=== PATIENT | female | born 1970 | race Caucasian/White ===

== ENCOUNTER 2018-01-05 13:02 | Emergency (ER) | payer MEDICAID ==
[~2018-01-05] VITALS: Ht 170.2 cm; Wt 85.7 kg
--- NOTE | 2018-01-05 13:02 | NUR ---
Pt placed in bed 3 by ALS
[2018-01-05 13:05] VITALS: BP_SYST 196
--- NOTE | 2018-01-05 13:10 | NUR ---
ER at bedside examining patient.
[2018-01-05] MEDS ORDERED: ASPIRIN 81 MG TAB.CHEW PO ONE (13:15)
[2018-01-05] MEDS ORDERED: NITROGLYCERIN 1 INCH (GM) OINT. TP ONE (13:15)
--- NOTE | 2018-01-05 13:20 | NUR ---
Pt complains of left upper chest pain that radiates to left arm, pt states feels "like pressure to chest. Pt complains of SOB with n/v. Pt is able to speak in full sentences and O2 sat is 96% on room air. Pt states pain started this morning when waking up and got worse at work. 911 was called and pt was brought here. No other injuries/complaints per pt or noted. Addendum: 01/05/18 at 1328 by KIM Pt states pain is not constant, and has extra stress in life at this time.
--- NOTE | 2018-01-05 13:23 | NUR ---
Pt given aspirin and nitro paste, tolerated well
[2018-01-05 13:37] LABS: BASOPHILS # (AUTO) 0.1 K/uL (0.0-0.2); BASOPHILS % (AUTO) 1.5 % (0.0-2.0); EOSINOPHILS % (AUTO) 0.2 % (0.0-4.0); HEMOGLOBIN 11.2 g/dL (12.0-16.0); LYMPHOCYTES # (AUTO) 0.6 K/uL (1.0-5.5); LYMPHOCYTES % (AUTO) 9.4 % (20.5-51.5); MEAN CORPUSCULAR HEMOGLOBIN 28 pg (27-31); MEAN CORPUSCULAR HGB CONC 34 % (32-36); MEAN CORPUSCULAR VOLUME 83 fL (79.0-98.0); MONOCYTES # (AUTO) 0.6 K/uL (0.0-1.0); MONOCYTES % (AUTO) 8.4 % (1.7-9.3); NEUTROPHILS # (AUTO) 5.6 K/uL (1.8-7.7); NEUTROPHILS % (AUTO) 80.5 % (40.0-70.0); PLATELET COUNT (AUTO) 217 K/uL (130-430); RED BLOOD CELL COUNT(AUTO) 3.98 MIL/uL (4.2-6.2); RED CELL DISTRIBUTION WIDTH 18.5 % (9.0-15.0); WHITE BLOOD COUNT (AUTO) 6.9 K/uL (4.8-10.8)
[2018-01-05 13:51] LABS: INR 1.1 (0.8-1.2); PROTHROMBIN TIME 10.7 SECS (9.5-12.5)
[2018-01-05 13:52] LABS: CALCIUM 8.5 mg/dL (8.4-11.0); CREATININE 0.8 mg/dL (0.55-1.30); POTASSIUM 3.3 mmol/L (3.5-5.1)
[2018-01-05 14:00] LABS: ALBUMIN 3.5 g/dL (3.4-4.8); TOTAL BILIRUBIN 0.3 mg/dL (0.0-1.0)
[2018-01-05] MEDS ORDERED: ALBUTEROL SULFATE 0.083% 2.5 MG/3 ML VIAL.NEB INH ONE ×2 (15:00→16:30)
[2018-01-05] MEDS ORDERED: LORazepam 2 MG/ML VIAL (FOR ER USE) IVP ONE (15:00)
[2018-01-05] MEDS ORDERED: methylPREDNISolone SOD SUCC/PF 62.5 MG/ML VIAL IVP ONE (15:00)
--- NOTE | 2018-01-05 15:00 | NUR ---
Medication given, pt tolerated well
[2018-01-05] MEDS ORDERED: LEVOFLOXACIN 500 MG/D5W 100 ML IV ONE (15:15)
--- NOTE | 2018-01-05 15:15 | NUR ---
IV ATB was given, pt tolerated well
[2018-01-05 15:19] LABS: BILIRUBIN,URINE NEGATIVE (NEGATIVE); CLARITY/URINE SL HAZY (CLEAR); COLOR,URINE YELLOW (YELLOW); GLUCOSE,URINE NEGATIVE (NEGATIVE); KETONES,URINE 1+ (NEGATIVE); LEUKOCYTE ESTERASE ,URINE 2+ (NEGATIVE); NITRITE, URINE NEGATIVE (NEGATIVE); PROTEIN URINE 2+ (NEGATIVE); UROBILINOGEN,URINE 0.2 (0.2-1.0)
[2018-01-05 15:29] LABS: BLOOD, URINE TRACE (NEGATIVE)
[2018-01-05 15:58] LABS: BACTERIA,URINE MODERATE /HPF (None Seen); RBC,URINE 0-3 /HPF (0-3); WBC,URINE 20-50 /HPF (0-3)
[2018-01-05 15:59] LABS: MUCUS,URINE 2+ /LPF (None Seen)
--- NOTE | 2018-01-05 16:30 | NUR ---
Pt is resting in bed comfortably with no noted distress or discomfort.
[2018-01-05 17:01] VITALS: BP_SYST 139
--- NOTE | 2018-01-05 17:01 | NUR ---
Patient given written and verbal discharge instructions and verbalizes understanding. ER MD discussed with patient the results and treatment provided. Patient in stable condition. ID arm band removed. IV catheter removed intact and dressing applied, no active bleeding. Rx of augmentin and albuterol given. Patient educated on pain management and to follow up with PMD. Pain Scale 0. Opportunity for questions provided and answered.
== END 2018-01-05 17:01 | disposition home or self-care (01) ==
LOC: SED 13:02
DX: J20.9 Acute bronchitis, unspecified (principal); N39.0 Urinary tract infection, site not specified; E11.9 Type 2 diabetes mellitus without complications; I10 Essential (primary) hypertension
CPT/HCPCS: 36415; 71045; 80053; 81000; 81025; 83880; 84484; 85025; 85610; 87086; 93005; 94640; 96365; 96375; 99285; J2060; J2930; J7613